=== PATIENT | female | born 1990 | race Two or more races ===

== ENCOUNTER 2021-04-09 12:03 | Emergency (ER) | payer SELFPAY ==
[~2021-04-09] VITALS: Ht 162.6 cm; Wt 90.9 kg
[2021-04-09 12:59] LABS: BILIRUBIN,URINE SMALL (NEG); CLARITY,URINE CLEAR; COLOR,URINE YELLOW; NITRITE,URINE NEGATIVE (NEG); PH,URINE 5.5 (<5.0-8.0); PROTEIN,URINE NEGATIVE (NEG-TRACE)
[2021-04-09 13:07] LABS: BASO # 0.1 x10^3/uL (0.0-0.2); BASO % 1 % (0-3); EOS # 0.1 x10^3/uL (0.0-0.7); EOS % 1 % (0-3); HEMATOCRIT 40.7 % (36.0-47.0); HEMOGLOBIN 14.1 g/dL (12.0-15.5); LYMPH # 2.2 x10^3/uL (1.0-4.8); LYMPH % 32 % (24-48); MEAN CORPUSCULAR HEMOGLOBIN 29 pg (25-35); MEAN CORPUSCULAR HGB CONC 35 g/dL (31-37); MEAN CORPUSCULAR VOLUME 85 fL (79-100); MONO # 0.3 x10^3/uL (0.0-1.1); MONO % 5 % (0-9); NEUT # 4.1 x10^3/uL (1.8-7.7); NEUT % 60 % (31-73); PLATELET COUNT 303 x10^3/uL (140-400); RED BLOOD COUNT 4.78 x10^6/uL (3.50-5.40); RED CELL DISTRIBUTION WIDTH 12.9 % (11.5-14.5); WHITE BLOOD COUNT 6.7 x10^3/uL (4.0-11.0)
[2021-04-09 13:13] LABS: CALCIUM 8.7 mg/dL (8.5-10.1); CREATININE 0.7 mg/dL (0.6-1.0); GFR 98.9; POTASSIUM 3.6 mmol/L (3.5-5.1)
[2021-04-09 13:15] LABS: U PREG PATIENT NEGATIVE (NEG)
[2021-04-09 13:19] LABS: ALBUMIN 3.3 g/dL (3.4-5.0); ALBUMIN/GLOBULIN RATIO 0.9 (1.0-1.7); TOTAL BILIRUBIN 0.3 mg/dL (0.2-1.0)
[2021-04-09 13:30] VITALS: BP 108/59
[2021-04-09 13:43] LABS: BACTERIA,URINE FEW /HPF (0-FEW); RBC,URINE TNTC /HPF (0-2); WBC,URINE RARE /HPF (0-4)
--- NOTE | 2021-04-09 14:09 | RAD ---
INDICATION: Reason: Heavy vaginal bleeding; test negative / Spl. Instructions: / History: COMPARISON: None. TECHNIQUE: Grayscale and color ultrasound images uterus and adnexa. FINDINGS: Uterus: 93 x 59 x 41mm 8mm endometrial stripe . Right Ovary: 27 x 23 x 22 mm. Left Ovary: 30 x 27 x 24 mm. Vascular flow identified to bilateral ovaries. IMPRESSION: * Vascular flow seen to the ovaries. Electronically signed by: Law Poole MD (04/09/2021 2:07 PM) [id number]
--- NOTE | 2021-04-09 14:25 | PHYS DOC ---
Past Medical History Past Surgical History: No Surgical History Smoking Status: Never Smoker Alcohol Use: None General Adult EDM: Chief Complaint: VAGINAL BLEEDING HPI: HPI: Patient is a 30 year old female 4 para 3 currently 2 months presented to the ED today complaining of 5 out of 10 cramping abdominal pain wit h vaginal bleeding, symptoms began yesterday. Patient states she recently did a home test and it was positive. She states she has an appointment with her [employer] in April. Patient denies any nausea, vomiting, concerns for STDs. Denies anything specifically exacerbating or relieving her pain. She states she has used 2 feminine pads today Review of Systems: Review of Systems: Constitutional: Denies fever or chills. [] Eyes: Denies change in visual acuity. [] HENT: Denies nasal congestion or sore throat. [] Respiratory: Denies cough or shortness of breath. [] Cardiovascular: Denies chest pain or edema. [] GI: Reports abdominal pain with vaginal bleeding in , denies nausea, vomiting, bloody stools or diarrhea. [] : Denies dysuria. [] Musculoskeletal: Denies back pain or joint pain. [] Integument: Denies rash. [] Neurologic: Denies headache, focal weakness or sensory changes. [] [] Psychiatric: Denies depression or anxiety. [] Heart Score: C/O Chest Pain: N/A Risk Factors: Risk Factors: DM, Current or recent (<one month) smoker, HTN, HLP, family history of CAD, obesity. Risk Scores: Score 0 - 3: 2.5% MACE over next 6 weeks - Discharge Home Score 4 - 6: 20.3% MACE over next 6 weeks - Admit for Clinical Observation Score 7 - 10: 72.7% MACE over next 6 weeks - Early Invasive Strategies Allergies: Allergies: Allergies Coded Allergies Type Severity Reaction Last Updated Verified No Known Drug Allergies 04/09/21 No Physical Exam: PE: Constitutional: Well developed, well nourished, no acute distress, non-toxic appearance. [] HENT: Normocephalic, atraumatic, bilateral external ears normal, oropharynx moist, no oral exudates, nose normal. [] Eyes: PERRLA, EOMI, conjunctiva normal, no discharge. [] Neck: Normal range of motion, no tenderness, supple, no stridor. [] Cardiovascular:Heart rate regular rhythm, no murmur [] Lungs & Thorax: Bilateral breath sounds clear to auscultation [] Abdomen: Bowel sounds normal, soft, no tenderness, no masses, no pulsatile masses. [] Pelvic exam Femoral pelvic has small amount of old blood, no CMT, no adnexal tenderness, mild amount of bright red blood in the vaginal vault, no pooling. Skin: Warm, dry, no erythema, no rash. [] Back: No tenderness, no CVA tenderness. [] Extremities: No tenderness, no cyanosis, no clubbing, ROM intact, no edema. [] Neurologic: Alert and oriented X 3, normal motor function, normal sensory function, no focal deficits noted. [] Psychologic: Affect normal, judgement normal, mood normal. [] Current Patient Data: Labs: Laboratory Tests Test 04/09/21 12:20 04/09/21 12:53 Urine Collection Type Void Urine Color Yellow Urine Clarity Clear Urine pH 5.5 (<5.0-8.0) Urine Specific [place] >=1.030 (1.000-1.030) Urine Protein Negative mg/dL (NEG-TRACE) Urine Glucose (UA) Negative mg/dL (NEG) Urine Ketones (Stick) Negative mg/dL (NEG) Urine Blood Large (NEG) Urine Nitrite Negative (NEG) Urine Bilirubin Small (NEG) Urine Urobilinogen Dipstick 1.0 mg/dL (0.2 mg/dL) Urine Leukocyte Esterase Trace (NEG) Urine RBC Tntc /HPF (0-2) Urine WBC Rare /HPF (0-4) Urine Squamous Epithelial Cells Occ /LPF Urine Bacteria Few /HPF (0-FEW) Urine Mucus Slight /LPF Urine Test Negative (NEG) White Blood Count 6.7 x10^3/uL (4.0-11.0) Red Blood Count 4.78 x10^6/uL (3.50-5.40) Hemoglobin 14.1 g/dL (12.0-15.5) Hematocrit 40.7 % (36.0-47.0) Mean Corpuscular Volume 85 fL (79-100) Mean Corpuscular Hemoglobin 29 pg (25-35) Mean Corpuscular Hemoglobin Concent 35 g/dL (31-37) Red Cell Distribution Width 12.9 % (11.5-14.5) Platelet Count 303 x10^3/uL (140-400) Neutrophils (%) (Auto) 60 % (31-73) Lymphocytes (%) (Auto) 32 % (24-48) Monocytes (%) (Auto) 5 % (0-9) Eosinophils (%) (Auto) 1 % (0-3) Basophils (%) (Auto) 1 % (0-3) Neutrophils # (Auto) 4.1 x10^3/uL (1.8-7.7) Lymphocytes # (Auto) 2.2 x10^3/uL (1.0-4.8) Monocytes # (Auto) 0.3 x10^3/uL (0.0-1.1) Eosinophils # (Auto) 0.1 x10^3/uL (0.0-0.7) Basophils # (Auto) 0.1 x10^3/uL (0.0-0.2) Maternal Serum HCG Beta Subunit < 1 mIU/mL (0-5) Sodium Level 140 mmol/L (136-145) Potassium Level 3.6 mmol/L (3.5-5.1) Chloride Level 107 mmol/L (98-107) Carbon Dioxide Level 27 mmol/L (21-32) Anion Gap 6 (6-14) Blood Urea Nitrogen 15 mg/dL (7-20) Creatinine 0.7 mg/dL (0.6-1.0) Estimated GFR (Cockcroft-Gault) 98.9 BUN/Creatinine Ratio 21 (6-20) H Glucose Level 115 mg/dL (70-99) H Calcium Level 8.7 mg/dL (8.5-10.1) Total Bilirubin 0.3 mg/dL (0.2-1.0) Aspartate Amino Transferase (AST) 15 U/L (15-37) Alanine Aminotransferase (ALT) 27 U/L (14-59) Alkaline Phosphatase 89 U/L (46-116) Total Protein 7.0 g/dL (6.4-8.2) Albumin 3.3 g/dL (3.4-5.0) L Albumin/Globulin Ratio 0.9 (1.0-1.7) L Laboratory Tests 04/09/21 12:53 Laboratory Tests 04/09/21 12:53 Vital Signs: Vital Signs Date Time Temp Pulse Resp B/P (MAP) Pulse Ox O2 Delivery O2 Flow Rate FiO2 04/09/21 12:38 97.3 90 16 121/75 99 Room Air 97.3 EKG: EKG: [] Radiology/Procedures: Radiology/Procedures: []PROCEDURE: PELVIS COMPLETE INDICATION: Reason: Heavy vaginal bleeding; test negative / Spl. Instructions: / History: COMPARISON: None. TECHNIQUE: Grayscale and color ultrasound images uterus and adnexa. FINDINGS: Uterus: 93 x 59 x 41mm 8mm endometrial stripe . Right Ovary: 27 x 23 x 22 mm. Left Ovary: 30 x 27 x 24 mm. Vascular flow identified to bilateral ovaries. IMPRESSION: * Vascular flow seen to the ovaries. Electronically signed by: Sekou Poole MD (04/09/2021 2:07 PM) [id number] DICTATED and SIGNED BY: SEKOU POOLE MD DATE: 04/09/21 [id number] Course & Med Decision Making: Course & Med Decision Making Pertinent Labs and Imaging studies reviewed. (See chart for details) This is a 30-year-old female patient presenting to the ED today complaining of vaginal bleeding in that began yesterday. Negative urine hCG, beta- hCG less than 1, hemoglobin hematocrit are normal, WBC is normal. UA negative for infection. Pelvic ultrasound negative for any acute findings. Discharge to home. Follow-up with her [employer] next month. Anode Adjuster line was used for Akbar Mccormack Disclaimer: Ksenia Disclaimer: This electronic medical record was generated, in whole or in part, using a voice recognition dictation system. Departure Departure Impression: Primary Impression: Dysfunctional uterine bleeding Disposition: HOME / SELF CARE / HOMELESS Condition: STABLE Referrals: NO PCP (PCP) follow up with your OBGYN in April Patient Instructions: Uterine Bleeding, Dysfunctional Additional Instructions: You were evaluated in the emergency room, your test is negative, you are not . Your pelvic ultrasound is negative for any acute findings This is a menstrual cycle. Please follow-up with your [employer]. You can take Tylenol or ibuprofen for pain. MEGHANA AREVALO APRN Apr 09, 2021 14:25
== END 2021-04-09 14:42 | disposition home or self-care (01) ==
LOC: ER 12:03
DX: N93.8 Other specified abnormal uterine and vaginal bleeding (principal)
CPT/HCPCS: 36415; 76856; 80053; 81001; 81025; 84702; 85025; 87086; 99284-25

== ENCOUNTER 2021-05-05 14:35 | Emergency (ER) | payer SELFPAY ==
[~2021-05-05] VITALS: Ht 162.6 cm; Wt 80.0 kg
[2021-05-05 15:37] LABS: BILIRUBIN,URINE NEGATIVE (NEG); CLARITY,URINE CLEAR; COLOR,URINE YELLOW; NITRITE,URINE NEGATIVE (NEG); PROTEIN,URINE NEGATIVE (NEG-TRACE)
[2021-05-05 15:48] LABS: BACTERIA,URINE FEW /HPF (0-FEW); RBC,URINE 0 /HPF (0-2)
--- NOTE | 2021-05-05 15:48 | PHYS DOC ---
Past Medical History Past Surgical History: No Surgical History (MEGHANA AREVALO [employer]) Smoking Status: Never Smoker Alcohol Use: None (MEGHANA AREVALO [employer]) General Adult EDM: Chief Complaint: ABDOMINAL PAIN HPI: HPI: Patient is a 30 year old female with no significant medical history who presents the ED today complaining of 7 out of 10 sharp intermittent left upper quadrant abdominal pain radiating to her back/flank region, symptoms began yesterday. Patient also reports an episode of diarrhea today. Denies any fever, vomiting, nausea. Denies any chance she is . Denies anything specifically exacerbating or relieving her pain. Patient is Welsh-speaking and interpretation is provided by the brother (MEGHANA AREVALO Evaristo [employer]) Review of Systems: Review of Systems: Constitutional: Denies fever or chills. [] Eyes: Denies change in visual acuity. [] HENT: Denies nasal congestion or sore throat. [] Respiratory: Denies cough or shortness of breath. [] Cardiovascular: Denies chest pain or edema. [] GI: Reports left upper quadrant abdominal pain radiating to the left flank region, reports diarrhea, denies nausea, vomiting, bloody stools : Denies dysuria. [] Musculoskeletal: Denies back pain or joint pain. [] Integument: Denies rash. [] Neurologic: Denies headache, focal weakness or sensory changes. [] Psychiatric: Denies depression or anxiety. [] (MEGHANA AREVALO [employer]) Heart Score: C/O Chest Pain: N/A Risk Factors: Risk Factors: DM, Current or recent (<one month) smoker, HTN, HLP, family history of CAD, obesity. Risk Scores: Score 0 - 3: 2.5% MACE over next 6 weeks - Discharge Home Score 4 - 6: 20.3% MACE over next 6 weeks - Admit for Clinical Observation Score 7 - 10: 72.7% MACE over next 6 weeks - Early Invasive Strategies (MEGHANA AREVALO [employer]) Allergies: Allergies: Allergies Coded Allergies Type Severity Reaction Last Updated Verified No Known Drug Allergies 04/09/21 No (MEGHANA AREVALO [employer]) Physical Exam: PE: Constitutional: Well developed, well nourished, no acute distress, non-toxic appearance. [] HENT: Normocephalic, atraumatic, bilateral external ears normal, oropharynx moist, no oral exudates, nose normal. [] Eyes: PERRLA, EOMI, conjunctiva normal, no discharge. [] Neck: Normal range of motion, no tenderness, supple, no stridor. [] Cardiovascular:Heart rate regular rhythm, no murmur [] Lungs & Thorax: Bilateral breath sounds clear to auscultation [] Abdomen: Bowel sounds normal, soft, no tenderness, no masses, no pulsatile masses. [] Skin: Warm, dry, no erythema, no rash. [] Back: No tenderness, no CVA tenderness. [] Extremities: No tenderness, no cyanosis, no clubbing, ROM intact, no edema. [] Neurologic: Alert and oriented X 3, normal motor function, normal sensory function, no focal deficits noted. [] Psychologic: Affect normal, judgement normal, mood normal. [] (OZMEGHANA MILLER [employer]) Current Patient Data: Vital Signs: Vital Signs Date Time Temp Pulse Resp B/P (MAP) Pulse Ox O2 Delivery O2 Flow Rate FiO2 05/05/21 14:49 98.8 91 16 118/58 98 Room Air 98.8 (OZANGELAMEGHANA Evaristo [employer]) EKG: EKG: [] (MEGHANA AREVALO [employer]) Radiology/Procedures: Radiology/Procedures: []PROCEDURE: CT ABDOMEN PELVIS WO CONTRAST Exam: CT abdomen and pelvis without contrast INDICATION: Left flank pain TECHNIQUE: Sequential axial images through the abdomen and pelvis obtained without IV contrast. Sagittal and coronal reformatted images were reconstructed from the axial data and reviewed. Exposure: One or more of the following in the visualized dose reduction techniques were utilized for this examination: 1. Automated exposure control 2. Adjustment of the MA and/or KV according to patient size 3. Use of iterative of reconstructive technique Comparisons: None FINDINGS: Heart size is normal. No pericardial effusion. Visualized lung bases are clear. No pleural effusion. Evaluation solid organs limited secondary to noncontrast technique. Liver, spleen, pancreas, gallbladder and adrenals are unremarkable. No perinephric inflammation or hydronephrosis. No renal or ureteral calculi are identified. Bladder is partially distended and not well evaluated. Uterus not enlarged. No abnormal adnexal mass. Large and small bowel are unremarkable. Appendix is normal. No free intra- abdominal air or fluid. No obstruction. Abdominal aorta has normal course and caliber. No enlarged intra-abdominal lymph nodes No suspicious osseous lesions or acute fractures. IMPRESSION: 1. No renal or ureteral calculi. No evidence for obstructive uropathy. 2. Cystic lesion at the left adnexa measuring approximately 3.3 cm favored represent cyst within the left ovary. Electronically signed by: Glenn Roth MD (05/05/2021 4:34 PM) [facility] DICTATED and SIGNED BY: GLENN ROTH MD DATE: 05/05/21 [id number] PROCEDURE: PELVIS W/TV EXAM: ULTRASOUND PELVIS INDICATION: Reason: abd pain, ovarian cyst on CT? TECH NOTIFIED / Spl. Instructions: / History: . COMPARISON: None available. TECHNIQUE: Transabdominal and transvaginal sonography was performed. FINDINGS: Uterus measures 8.4 x 6.3 x 4.3 cm. Endometrium is 1.3 cm in thickness. Right ovary measures 2.0 x 3.2 x 1.9 cm. Left ovary measures 4.5 x 3.1 x 2.7 cm. There is a 1.5 cm cystic lesion in the left ovary. Vascular flow identified in the ovaries bilaterally. IMPRESSION: 1.5 cm mildly complex cystic lesion within the left ovary may represent a hemorrhagic cyst. No evidence for torsion. Electronically signed by: Glenn Roth MD (05/05/2021 7:18 PM) [facility] DICTATED and SIGNED BY: GLENN ROTH MD DATE: 05/05/21 [id number] (MEGHANA AREVALO APRN) Course & Med Decision Making: Course & Med Decision Making Pertinent Labs and Imaging studies reviewed. (See chart for details) This is a 30-year-old female patient presenting to the ED today complaining of left upper quadrant abdominal pain radiating to the left flank region, symptoms began yesterday Negative urine hCG. UA negative for infection. CT of the abdomen and pelvic was noted for cystic lesion at the left adnexa measuring approximately 3.3 cm favored represent cyst within the left ovary. Pelvic ultrasound noted for 1.5 cm mildly complex cystic lesion within the left ovary may represent a hemorrhagic cyst. No evidence for torsion. Provided [employer] for follow-up. (MEGHANA AREVALO APRN) Course & Med Decision Making Patients Care and treatment plan provided by ER Nurse Practitioner. I was available for consult. Patient's chart reviewed. (BEATRICE HUTTON DO) Ksenia Disclaimer: Ksenia Disclaimer: This electronic medical record was generated, in whole or in part, using a voice recognition dictation system. (MEGHANA AREVALO APRN) Departure Departure Impression: Primary Impression: Hemorrhagic cyst of left ovary Disposition: HOME / SELF CARE / HOMELESS Condition: STABLE Referrals: NO PCP (PCP) SHOLA WU MD follow up in 2 weeks Patient Instructions: Ovarian Cyst Additional Instructions: You have a hemorrhagic cyst to the left ovary. Please get a heating pad and apply on your abdomen/pelvic region. Take the prescribed medications as needed for pain. Follow-up with your [employer] in 2 weeks for repeat ultrasound in 6 weeks Scripts Tramadol Hcl (TRAMADOL HCL) 50 Mg Tablet 50 MG PO Q6HRS PRN for PAIN, #30 TAB Prov: MEGHANA AREVALO APRN 05/05/21 MEGHANA AREVALO APRN May 05, 2021 15:48 BEATRICE HUTTON DO May 06, 2021 18:28
[2021-05-05 16:05] LABS: U PREG PATIENT NEGATIVE (NEG)
--- NOTE | 2021-05-05 16:36 | RAD ---
Exam: CT abdomen and pelvis without contrast INDICATION: Left flank pain TECHNIQUE: Sequential axial images through the abdomen and pelvis obtained without IV contrast. Sagit john and coronal reformatted images were reconstructed from the axial data and reviewed. Exposure: One or more of the following in the visualized dose reduction techniques were utilized for this examination: 1. Automated exposure control 2. Adjustment of the MA and/or KV according to patient size 3. Use of iterative of reconstructive technique Comparisons: None FINDINGS: Heart size is normal. No pericardial effusion. Visualized lung bases are clear. No pleural effusion. Evaluation solid organs limited secondary to noncontrast technique. Liver, spleen, pancreas, gallbladder and adrenals are unremarkable. No perinephric inflammation or hydronephrosis. No renal or ureteral calculi are identified. Bladder is partially distended and not well evaluated. Uterus not enlarged. No abnormal adnexal mass. Large and small bowel are unremarkable. Appendix is normal. No free intra-abdominal air or fluid. No obstruction. Abdominal aorta has normal course and caliber. No enlarged intra-abdominal lymph nodes No suspicious osseous lesions or acute fractures. IMPRESSION: 1. No renal or ureteral calculi. No evidence for obstructive uropathy. 2. Cystic lesion at the left adnexa measuring approximately 3.3 cm favored represent cyst within the left ovary. Electronically signed by: Glenn Armijo MD (05/05/2021 4:34 PM) [facility]
[2021-05-05 19:10] VITALS: BP 119/79
--- NOTE | 2021-05-05 19:21 | RAD ---
EXAM: ULTRASOUND PELVIS INDICATION: Reason: abd pain, ovarian cyst on CT? TECH NOTIFIED / Spl. Instructions: / History: . COMPARISON: None available. TECHNIQUE: Transabdominal and transvaginal sonography was performed. FINDINGS: Uterus measures 8.4 x 6.3 x 4.3 cm. Endometrium is 1.3 cm in thickness. Right ovary measures 2.0 x 3.2 x 1.9 cm. Left ovary measures 4.5 x 3.1 x 2.7 cm. There is a 1.5 cm cystic lesion in the left ovary. Vascular flow identified in the ovaries bilaterally. IMPRESSION: 1.5 cm mildly complex cystic lesion within the left ovary may represent a hemorrhagic cyst. No eviden ce for torsion. Electronically signed by: Glenn Armijo MD (05/05/2021 7:18 PM) [facility]
[2021-05-05] MEDS ORDERED: TRAM50TA PO (19:26)
== END 2021-05-05 19:34 | disposition home or self-care (01) ==
LOC: ER 14:35
DX: N83.202 Unspecified ovarian cyst, left side (principal)
CPT/HCPCS: 74176; 76830; 76856; 81001; 81025; 99285-25